=== PATIENT | male | born 1985 | race Caucasian/White ===

== ENCOUNTER 2023-06-28 03:35 | Emergency (ER) | payer OTHER, SELFPAY ==
--- NOTE | ~2023-06-28 | XR_ITS ---
Left Shoulder Technique: AP and scapular Y views were obtained. Clinical History: Pain Findings: No fracture or dislocation is seen. Osseous alignment is anatomic. The glenohumeral and acr omioclavicular joint spaces are preserved. Soft tissues are unremarkable. Impression: Unremarkable left shoulder radiographs. Reviewed, dictated and finalized at [facility]. Impression: Unremarkable left shoulder radiographs.
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
--- NOTE | ~2023-06-28 | CT_ITS ---
Noncontrast CT scan of the cervical spine Technique: Multiple contiguous axial [address] images of the cervical spine were obtained and rec onstructed in 2D sagittal and coronal planes on the acquisition scanner. Dose reduction technique was used on this scan by utilizing automated exposure control, adjustment of the mA and/or kV according to patient size. The dose-length product (DLP) was 492.72 mGy-cm. Clinical History: Pain Findings: No fractures or dislocations. There are minimal degenerative disc changes and minimal face t joint degenerative changes. Probable mild canal stenosis at C3-C4 and C4-C5. Probable right paracen tral disc bulge and right neural foraminal narrowing at C5-C6. No prevertebral soft tissue swelling. Impression: No fracture or subluxation of the cervical spine. Mild degenerative change, as above. Reviewed, dictated and finalized at [facility]. Impression: No fracture or subluxation of the cervical spine. Mild degenerative change, as above.
[2023-06-28 03:25] VITALS: BP 150/91; PULSE 103; RESP 20; TEMP 37; O2SAT 100
[2023-06-28] MEDS: ACETAMINOPHEN 500 MG TABLET 1000 MG PO (04:40)
[2023-06-28] MEDS: methocarbamoL 750 MG TABLET 1500 MG PO (04:40)
[2023-06-28 05:13] VITALS: BP 121/79; PULSE 86; RESP 16; O2SAT 100
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
[2023-06-28 06:24] VITALS: BP 130/78; PULSE 89; RESP 17; O2SAT 100
== END 2023-06-28 06:26 | disposition home or self-care (01) ==
PROVIDERS: Emergency Provider Emergency Medicine
DX: S49.92XA Unspecified injury of left shoulder and upper arm, initial encounter (principal); S09.90XA Unspecified injury of head, initial encounter; Z85.47 Personal history of malignant neoplasm of testis; V63.5XXA Driver of heavy transport vehicle injured in collision with car, pick-up truck or van in traffic accident, initial encounter
CPT/HCPCS: 70450; 72125; 73030; 99284; A9270